=== PATIENT | male | born 1945 | race Caucasian/White ===

== ENCOUNTER 2016-06-17 09:17 | Emergency (ER) | payer MEDICARE, BC ==
[~2016-06-17] VITALS: Ht 180.3 cm; Wt 140.6 kg
[2016-06-17 09:27] VITALS: BP 164/81
[2016-06-17] MEDS ORDERED: OMEP10CASR PO (09:37)
[2016-06-17] MEDS ORDERED: CLAR10CA3 PO (09:37)
[2016-06-17] MEDS ORDERED: ASPI81TA85 PO (09:37)
[2016-06-17] MEDS ORDERED: FURO40TA2 PO (09:37)
[2016-06-17] MEDS ORDERED: LISI10TA4 PO (09:37)
[2016-06-17] MEDS ORDERED: SIMV80TA PO (09:37)
[2016-06-17] MEDS ORDERED: MULT1TAB18 PO (09:37)
[2016-06-17] MEDS ORDERED: NEUR600T PO (09:37)
[2016-06-17] MEDS ORDERED: TERA10CA3 PO (09:37)
[2016-06-17] MEDS ORDERED: GLIP10TA6 PO (09:37)
[2016-06-17] MEDS ORDERED: ATEN50TA2 PO (09:37)
--- NOTE | 2016-06-17 19:08 | ECGEPIP ---
Stationary ECG Study [facility] - ED Test Date: 2016-06-17 Pat Name: KIANA GILBERT Department: Room: - Gender: M [employer] Super[employer]: martinez : 1945 Requested By: SARA Reaves Order Number: [id number] Reading MD: Fortunato Camacho Measurements Intervals [place] Rate: 59 P: 27 NE: 216 QRS: 42 QRSD: 109 T: 34 QT: 399 QTc: 397 Interpretive Statements SINUS BRADYCARDIA WITH FIRST DEGREE AV BLOCK POSSIBLE PRIOR INFERIOR INFARCT NO PRIORS Electronically Signed On 06-17-2016 19:08:23 EDT by Fortunato Camacho
== END 2016-06-17 12:43 | disposition left against medical advice (07) ==
LOC: M ED 11:06
DX: R20.2 Paresthesia of skin (principal); E11.9 Type 2 diabetes mellitus without complications; I10 Essential (primary) hypertension; Z79.899 Other long term (current) drug therapy; Z79.82 Long term (current) use of aspirin; Z79.84 Long term (current) use of oral hypoglycemic drugs; Z91.030 Bee allergy status; Z88.5 Allergy status to narcotic agent; Z87.891 Personal history of nicotine dependence

== ENCOUNTER 2017-05-09 08:45 | Outpatient (RCR) | payer OTHER | END 2017-05-11 | LOC: M PT 08:45 | DX: Z51.89 Encounter for other specified aftercare (principal); M79.642 Pain in left hand; I89.0 Lymphedema, not elsewhere classified | CPT/HCPCS: 97530 ==

== ENCOUNTER 2017-05-13 10:04 | Outpatient (RCR) | payer OTHER | END 2017-06-11 | LOC: M PT 10:04 | DX: Z51.89 Encounter for other specified aftercare (principal); I89.0 Lymphedema, not elsewhere classified | CPT/HCPCS: 97140 ==

== ENCOUNTER 2017-06-24 09:09 | Outpatient (RCR) | payer OTHER | END 2017-07-11 | LOC: M PT 09:09 | DX: Z51.89 Encounter for other specified aftercare (principal); I89.0 Lymphedema, not elsewhere classified | CPT/HCPCS: 97140 ==

== ENCOUNTER → 2017-07-11 | Outpatient (CLI) | payer OTHER | LOC: M PLARAD 08:56 | DX: M51.37 Other intervertebral disc degeneration, lumbosacral region (principal) | CPT/HCPCS: 72148 ==

== ENCOUNTER 2018-07-04 07:43 | Outpatient (RCR) | payer BC, MEDICARE, OTHER ==
[~2018-07-04 07:43] MED LIST: ASPI81TA85 PO; ATEN50TA2 PO; CLAR10CA3 PO; FURO40TA2 PO; GLIP10TA6 PO; LISI10TA4 PO; MULT1TAB18 PO; NEUR600T PO; OMEP10CASR PO; SIMV80TA13 PO; TERA10CA3 PO
== END 2018-07-11 ==
LOC: M PT 07:43
PROVIDERS: ATTEND Surgery Vascular Surgery
DX: I89.0 Lymphedema, not elsewhere classified (principal)

== ENCOUNTER → 2018-12-12 | Outpatient (CLI) | payer OTHER | LOC: M PT 08:31 | PROVIDERS: ATTEND Surgery Vascular Surgery | DX: I89.0 Lymphedema, not elsewhere classified (principal) ==

== ENCOUNTER 2019-06-13 07:42 | Outpatient (RCR) | payer OTHER | END 2019-07-12 | LOC: M PT 07:42 | PROVIDERS: ATTEND Surgery Vascular Surgery | DX: I89.0 Lymphedema, not elsewhere classified (principal) ==

== ENCOUNTER 2019-12-13 08:09 | Outpatient (RCR) | payer OTHER ==
[~2019-12-13 08:09] MED LIST changes: -ASPI81TA85 PO; +ASPI81TA86 PO
== END 2020-01-12 ==
LOC: M PT 08:09
PROVIDERS: ATTEND Surgery Vascular Surgery
DX: I89.0 Lymphedema, not elsewhere classified (principal)

== ENCOUNTER → 2020-02-18 | Outpatient (CLI) | payer OTHER | LOC: M LABSMTC 18:06 | PROVIDERS: ATTEND Pediatrics | DX: Z11.59 Encounter for screening for other viral diseases (principal) ==

== ENCOUNTER 2020-06-12 07:58 | Outpatient (RCR) | payer OTHER ==
[~2020-06-12 07:58] MED LIST changes: +LISI10TA22 PO; -LISI10TA4 PO
== END 2020-07-11 ==
LOC: M PT 07:58
PROVIDERS: ATTEND Family Medicine
DX: I89.0 Lymphedema, not elsewhere classified (principal)

== ENCOUNTER 2020-12-12 08:15 | Outpatient (RCR) | payer OTHER | END 2021-01-11 | LOC: M PT 08:15 | PROVIDERS: ATTEND Family Medicine | DX: I89.0 Lymphedema, not elsewhere classified (principal) ==

== ENCOUNTER 2021-06-12 08:16 | Outpatient (RCR) | payer OTHER | END 2021-07-11 | LOC: M PT 08:16 | PROVIDERS: ATTEND Family Medicine | DX: I89.0 Lymphedema, not elsewhere classified (principal) ==

== ENCOUNTER 2021-12-24 09:17 | Outpatient (RCR) | payer OTHER | END 2022-01-11 | LOC: M PT 09:17 | PROVIDERS: ATTEND Family Medicine | DX: I89.0 Lymphedema, not elsewhere classified (principal) ==

== ENCOUNTER 2022-06-28 08:16 | Outpatient (RCR) | payer MEDICARE, OTHER | END 2022-07-11 | LOC: M PT 08:16 | PROVIDERS: ATTEND Family Medicine | DX: I89.0 Lymphedema, not elsewhere classified (principal) ==

== ENCOUNTER 2022-12-27 07:51 | Outpatient (RCR) | payer OTHER | END 2023-01-11 | LOC: M PT 07:51 | PROVIDERS: ATTEND Family Medicine | DX: I89.0 Lymphedema, not elsewhere classified (principal) ==

== ENCOUNTER → 2023-04-15 | Outpatient (CLI) | payer MEDICARE, OTHER | LOC: M WHC 13:40 | PROVIDERS: ATTEND Nurse Practitioner Family | DX: M81.0 Age-related osteoporosis without current pathological fracture (principal); E21.0 Primary hyperparathyroidism; R97.1 Elevated cancer antigen 125 [CA 125] ==

== ENCOUNTER 2023-06-28 07:49 | Outpatient (RCR) | payer OTHER, MEDICARE | END 2023-07-12 | LOC: M PT 07:49 | PROVIDERS: ATTEND Family Medicine | DX: I89.0 Lymphedema, not elsewhere classified (principal) ==

== ENCOUNTER 2023-12-26 09:36 | Outpatient (RCR) | payer MEDICARE, OTHER ==
[~2023-12-26 09:36] MED LIST changes: +GLIP10TA15 PO; -GLIP10TA6 PO
== END 2024-01-12 ==
LOC: M PT 09:36
PROVIDERS: ATTEND Family Medicine
DX: I89.0 Lymphedema, not elsewhere classified (principal)

== ENCOUNTER 2024-06-27 07:51 | Outpatient (RCR) | payer MEDICARE, OTHER | END 2024-07-11 | LOC: M PT 07:51 | PROVIDERS: ATTEND Family Medicine | DX: I89.0 Lymphedema, not elsewhere classified (principal) ==

== ENCOUNTER 2025-01-24 08:28 | Outpatient (RCR) | payer MEDICARE, OTHER | END 2025-02-10 | LOC: M PT 08:28 | PROVIDERS: ATTEND Family Medicine | DX: I89.0 Lymphedema, not elsewhere classified (principal) ==